=== PATIENT | female | born 1940 | race Caucasian/White ===

== ENCOUNTER 2017-07-16 15:55 | Emergency (ER) | payer MEDICARE ==
[~2017-07-16 15:55] MED LIST: ISOVUE-370 76%-LOCM 1 ML ONE
[2017-07-16 16:23] LABS: #Basophils 0.1 thou/uL (0.0-0.2); #Eosinphils 0.4 thou/uL (0.0-0.7); #Monocytes 0.9 thou/uL (0.11-0.59); #Neutrophils 3.7 thou/uL (1.40-6.50); %Lymphocytes 44.2 % (21.0-51.0); %Monocytes 9.6 % (0.0-10.0); %Neutrophils 41.2 % (42.0-75.0); Hemoglobin 12.1 g/dL (12.0-16.0); Mean Corpuscular HGB CONC 33.2 g/dL (32.0-36.0); Mean Corpuscular Hemoglobin 29.2 pg (27.0-31.0); Platelet Count 250 thou/uL (130-400); RBC Distribution Width 12.9 % (11.5-14.5); Red Blood Cell (RBC) Count 4.15 mill/uL (4.20-5.40)
--- NOTE | 2017-07-16 16:35 | RAD ---
PORTABLE CHEST 1 VIEW: Date: 07/16/17 Time: 1531 hours HISTORY: Chest pain. FINDINGS: Comparison made with exam of 09/02/14. There are changes of median sternotomy. Heart size is normal. The aorta is tortuous. The lungs are ex panded without focal areas of consolidation, pneumothorax, or pleural effusions. There are postop angelo nges of bilateral rotator cuff repair. IMPRESSION: No radiographic evidence of acute cardiopulmonary process. POS: [facility]
[2017-07-16 16:45] LABS: ALT (SGPT) 16 U/L (8-55); AST (SGOT) 20 U/L (5-34); Albumin 3.8 g/dL (3.4-4.8); Alkaline Phosphatase 84 U/L (40-150); Anion Gap 12 mmol/L (10-20); BUN (Urea Nitrogen) 14 mg/dL (9.8-20.1); Bilirubin, Total 0.4 mg/dL (0.2-1.2); Calc. Creatinine Clearance 0 mL/min (70-130); Carbon Dioxide 27 mmol/L (23-31); Chloride 104 mmol/L (98-107); Estimated GFR-MDRD 70; Globulin 2.7 g/dL (2.4-3.5); Glucose 117 mg/dL (83-110); Potassium 4.5 mmol/L (3.5-5.1); Protein, Total 6.5 g/dL (6.0-8.3); Sodium 138 mmol/L (136-145)
[2017-07-16 16:54] LABS: CKMB 0.5 ng/mL (0-6.6); Troponin I Less than 0.010 ng/mL (< 0.028)
--- NOTE | 2017-07-16 19:47 | CT ---
CTA OF THE CHEST WITH CONTRAST 07/16/17 COMPARISON: 09/02/14 HISTORY: Chest pain that began this morning suddenly. Bilateral lower extremity edema. TECHNIQUE: Multiple contiguous axial images were obtained in a CTA of the chest with contrast per pulmonary embo lism protocol. 3D oblique MIP reformats and direct coronal reformats were performed. FINDINGS: The pulmonary arteries are well opacified without filling defects to suggest pulmonary emboli. The he art is normal in size without focal cardiac abnormality. Calcifications are seen in the coronary lul olga and aorta. No hilar or mediastinal lymphadenopathy are seen. No pneumothorax or pleural effusion are seen. No focal infiltrates are seen in the lungs. A calcified granuloma is seen in the left lung base. No suspicious pulmonary nodules are identified. The patient is status post cholecystectomy. The visualized subdiaphragmatic structures are unremarkab le. Degenerative changes are seen in the spine. The chest wall soft tissues are unremarkable. IMPRESSION: No evidence of pulmonary thromboembolism. POS: [facility]
== END 2017-07-16 18:37 | disposition home or self-care (01) ==
LOC: ERS 15:55
DX: R07.89 Other chest pain (principal); I25.2 Old myocardial infarction; E03.9 Hypothyroidism, unspecified; M19.90 Unspecified osteoarthritis, unspecified site; I48.91 Unspecified atrial fibrillation; Z79.82 Long term (current) use of aspirin; Z79.899 Other long term (current) drug therapy
CPT/HCPCS: 36415; 71045; 71275; 80053; 82553; 84484; 85025; 85379; 93005

== ENCOUNTER 2017-10-17 11:03 | Outpatient (CLI) | payer MEDICARE ==
--- NOTE | 2017-10-17 15:13 | MRI ---
MRI PELVIS WITHOUT CONTRAST: Date: 10/17/17 HISTORY: Sacral pain. M52.3. COMPARISON: None. FINDINGS: Please see lumbar spine MRI for detailed findings of the lumbar spine. There is advanced degenerative changes of sclerosis and fragmentation of the pubic symphysis. Muscles: No significant muscle edema. Piriformis musculature is symmetric. Neurovascular Bundles: No impingement upon the sciatic nerves. The presacral plexus is intact. Tendons: Moderate tendinosis and undersurface delamination of the hamstring tendons. Endopelvic Soft Tissues: Unremarkable. 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 No evidence of nerve root impingement of the exiting sacral nerve roots. POS: [facility]
--- NOTE | 2017-10-17 15:40 | MRI ---
NONCONTRAST MRI LUMBAR SPINE: Date: 10-17-17 History: Lumbar radiculopathy. Patient fell two months ago. Back pain and tailbone pain as well as le ft knee pain. Comparison: None available. FINDINGS: There are increased T2 signal intensity lesions seen in the right kidney, the one in the superior trey e measuring 1.5 cm as well as an additional increased signal intensity exophytic focus in the midport ion of the right kidney measuring 1.4 cm as well as a subcentimeter too small to characterize hypoden se lesion in the midportion right kidney. These statistically likely represent cysts but are difficul t to accurately characterize on this exam. Retroperitoneal structures otherwise demonstrate a normal MRI appearance. The conus medullaris is nor mal in appearance and terminates at the L1-2 level. Normal signal intensity is demonstrated in the bone marrow. T12-L1: There is a mild disc osteophyte complex which results in slight flattening of the ventral sub arachnoid space. Neural foramina are patent. L1-2: There is a mild broad based disc osteophyte complex resulting in flattening of the anterior asp ect of the thecal sac. The neural foramina are patent. L2-3: There is a broad based disc osteophyte complex with facet and hypertrophic changes. There is ge neralized mild narrowing of the central spinal canal. The neural foramina are patent with only minima l encroachment on the right neural foramen. There is an increased T2 weighted signal intensity focus seen in the region of the lateral aspect of the right neural foramen, probably related to small peron eal cysts. L3-4: There is loss of intervertebral disc height. There is a broad based disc osteophyte complex wit h central disc protrusion. There are moderate facet hypertrophic changes with ligamentous thickening. Findings result in severe narrowing of the central spinal canal. Mild to moderate right sided neural foraminal narrowing and mild left sided neural foraminal narrowing are present. L4-5: There is loss of intervertebral disc height. There is a broad based disc osteophyte complex pre sent. Facet and hypertrophic changes are noted. There is mild narrowing of the central spinal canal. The broad based disc bulge does result in effacement of the ventral aspect of the thecal sac and the traversing right L5 nerve root is slightly posteriorly displaced without deformity. Moderate right a nd minimal left sided neural foraminal narrowing are present. L5-S1: There is a broad based disc osteophyte complex with prominent facet hypertrophic changes at th is level. There is only slight effacement of the central aspect of the thecal sac without significant narrowing of the central spinal canal at this level. There is only minimal encroachment on each neur al foramen. IMPRESSION: 1. Multilevel degenerative changes seen throughout the lumbar spine. Findings are greatest at the L3- 4 level where there is severe narrowing of the central spinal canal and mild to moderate right sided neural foraminal narrowing. 2. Increased T2 weighted signal intensity lesions in the right kidney which are difficult to accurate ly characterize but are statistically most likely related to renal cysts. POS: [facility]
== END 2017-10-17 11:04 | disposition home or self-care (01) ==
LOC: MRI 11:03
PROVIDERS: ATTEND Neurological Surgery
DX: M47.26 Other spondylosis with radiculopathy, lumbar region (principal); M53.3 Sacrococcygeal disorders, not elsewhere classified; M99.83 Other biomechanical lesions of lumbar region; M48.061 Spinal stenosis, lumbar region without neurogenic claudication; M46.97 Unspecified inflammatory spondylopathy, lumbosacral region
CPT/HCPCS: 72148; 72195

== ENCOUNTER 2017-11-13 11:24 | Emergency (ER) | payer MEDICARE ==
[2017-11-13 11:57] LABS: Bilirubin Small (Negative); Blood, Urine Negative (Negative); Clarity CLEAR (Clear); Glucose, Urine (Dipstick) Negative (Negative); Leukocyte Trace (Negative); Nitrite Negative (Negative); Protein, Urine (Dipstick) Negative (Neg-Trace); Specific Gravity, Urine 1.014 (1.002-1.036); pH, Urine 6.5 (5.0-9.0)
[2017-11-13 12:01] LABS: Bacteria/HPF None Seen HPF (None Seen); Hyaline Casts/LPF 0-3 HYALINE CAST LPF (0-3 Hyaline); Pathc Cast-AUWi Flag 0.14 (0-2.49); Squamous Epithelial 0-3 HPF (0-3); WBC/HPF 0-3 HPF (0-3)
[2017-11-13 13:26] LABS: #Basophils 0.1 thou/uL (0.0-0.2); #Eosinphils 0.2 thou/uL (0.0-0.7); #Lymphocytes 2.6 thou/uL (1.20-3.40); #Monocytes 0.7 thou/uL (0.11-0.59); #Neutrophils 5.8 thou/uL (1.40-6.50); %Basophils 0.6 % (0.0-1.0); %Eosinophils 1.6 % (0.0-10.0); %Lymphocytes 28.1 % (21.0-51.0); %Monocytes 7.5 % (0.0-10.0); %Neutrophils 62.1 % (42.0-75.0); Mean Corpuscular HGB CONC 32.3 g/dL (32.0-36.0); Mean Corpuscular Hemoglobin 29.8 pg (27.0-31.0); Mean Corpuscular Volume 92.3 fL (78.0-98.0); Mean Platelet Volume 6.8 fL (7.4-10.4); Platelet Count 253 thou/uL (130-400); RBC Distribution Width 13.2 % (11.5-14.5); Red Blood Cell (RBC) Count 4.35 mill/uL (4.20-5.40); White Blood Cell (WBC) Count 9.3 thou/uL (4.8-10.8)
[2017-11-13 13:57] LABS: ALT (SGPT) 17 U/L (8-55); AST (SGOT) 29 U/L (5-34); Albumin 4.1 g/dL (3.4-4.8); Alkaline Phosphatase 72 U/L (40-150); Anion Gap 15 mmol/L (10-20); BUN (Urea Nitrogen) 9 mg/dL (9.8-20.1); Bilirubin, Total 0.4 mg/dL (0.2-1.2); Calc. Creatinine Clearance 0 mL/min (70-130); Calcium 9.4 mg/dL (7.8-10.44); Carbon Dioxide 24 mmol/L (23-31); Chloride 101 mmol/L (98-107); Estimated GFR-MDRD 75; Globulin 2.7 g/dL (2.4-3.5); Glucose 98 mg/dL (83-110); Lipase 16 U/L (8-78); Protein, Total 6.8 g/dL (6.0-8.3); Sodium 136 mmol/L (136-145)
[2017-11-13] MEDS ORDERED: ISOVUE-370 76%-LOCM 1 ML ONE (14:08)
--- NOTE | 2017-11-13 14:38 | CT ---
CT ABDOMEN AND PELVIS WITH CONTRAST: HISTORY: Left low back and hip pain. TECHNIQUE: Multiple contiguous axial images were obtained in a CT of the abdomen and pelvis with contrast. Corazon nal reformats were performed. FINDINGS: The patient is status post cholecystectomy and hysterectomy. The liver, left kidney, adrenal glands, spleen, and pancreas are unremarkable. There is a small 11 mm exophytic cyst emanating from the rig ht kidney. No free air, free fluid, or stranding changes are seen in the abdomen and pelvis. Moderate stool is seen in the colon. The small bowel is unremarkable. No abdominal or pelvic lympha denopathy are seen. Atherosclerotic calcifications are seen in the aorta. Degenerative changes are seen in the spine. There is a calcified granuloma in the left lung base. T he abdominal wall soft tissues are unremarkable. IMPRESSION: 1. No evidence of acute intraabdominal/pelvic abnormality. 2. Moderate stool retention in the colon. POS: [facility]
== END 2017-11-13 14:58 | disposition home or self-care (01) ==
LOC: ERS 11:24
DX: M54.16 Radiculopathy, lumbar region (principal); E03.9 Hypothyroidism, unspecified; I48.91 Unspecified atrial fibrillation
CPT/HCPCS: 36415; 74177; 80053; 81003; 81015; 83690; 85025

== ENCOUNTER 2018-08-09 16:04 | Emergency (ER) | payer MEDICARE ==
[2018-08-09] MEDS ORDERED: Cyclobenzaprine 10 MG TAB ONE (17:04)
[2018-08-09] MEDS ORDERED: Ketorolac Tromethamine 30 MG/ML VIAL ONE (17:04)
[2018-08-09 18:00] LABS: Bilirubin Negative (Negative); Blood, Urine Negative (Negative); Clarity CLEAR (Clear); Glucose, Urine (Dipstick) Negative (Negative); Leukocyte Negative (Negative); Nitrite Negative (Negative); Protein, Urine (Dipstick) Negative (Neg-Trace); Urobilinogen 0.2 mg/dL (0.2-1.0)
== END 2018-08-09 18:23 | disposition home or self-care (01) ==
LOC: ERS 16:04
DX: M54.5 Low back pain (principal); E03.9 Hypothyroidism, unspecified; I49.9 Cardiac arrhythmia, unspecified; I48.91 Unspecified atrial fibrillation; M19.90 Unspecified osteoarthritis, unspecified site; Z79.899 Other long term (current) drug therapy; Z79.02 Long term (current) use of antithrombotics/antiplatelets
CPT/HCPCS: 81003; 96372; J1885

== ENCOUNTER 2021-09-28 12:23 | Outpatient (CLI) | payer MEDICARE ==
[2021-09-28] MEDS ORDERED: Iopamidol 370 76% 100 ML VIAL ONE (14:19)
== END 2021-09-28 12:24 | disposition home or self-care (01) ==
LOC: BICCT 12:23
PROVIDERS: ATTEND Urology
DX: R31.29 Other microscopic hematuria (principal); N28.1 Cyst of kidney, acquired; N39.46 Mixed incontinence
CPT/HCPCS: 74178; 82565; Q9967

== ENCOUNTER 2022-01-02 18:04 | Emergency (ER) | payer OTHER, MEDICARE ==
[2022-01-02] MEDS ORDERED: Lidocaine 1% w/Epinephrine 1:100K 20 ML VIAL ONE (19:38)
[2022-01-02] MEDS ORDERED: Boostrix 0.5 ML (Tdap) VIAL (>/=7 yrs of age) ONE (20:08)
== END 2022-01-02 20:39 | disposition home or self-care (01) ==
LOC: ERS 18:04
DX: S01.01XA Laceration without foreign body of scalp, initial encounter (principal); I48.91 Unspecified atrial fibrillation; Z23 Encounter for immunization; Z79.02 Long term (current) use of antithrombotics/antiplatelets; W01.198A Fall on same level from slipping, tripping and stumbling with subsequent striking against other object, initial encounter
CPT/HCPCS: 12001; 70450; 72125; 90471; 90715

== ENCOUNTER 2022-03-12 12:43 | Outpatient (CLI) | payer MEDICARE | END 2022-03-12 12:44 | disposition home or self-care (01) | LOC: BICMAMMO 12:43 | PROVIDERS: ATTEND Internal Medicine | DX: Z12.31 Encounter for screening mammogram for malignant neoplasm of breast (principal) | CPT/HCPCS: 77063; 77067 ==

== ENCOUNTER 2022-03-30 13:03 | Outpatient (CLI) | payer MEDICARE | END 2022-03-30 13:04 | disposition home or self-care (01) | LOC: BICMAMMO 13:03 | PROVIDERS: ATTEND Internal Medicine | DX: N63.20 Unspecified lump in the left breast, unspecified quadrant (principal) | CPT/HCPCS: 77065; G0279 ==